=== PATIENT | male | born 1990 | race Caucasian/White ===

== ENCOUNTER 2020-05-30 13:00 | Outpatient (RCR) | payer OTHER, SELFPAY ==
--- NOTE | 2020-05-20 14:18 | HP.PTEVAL_ITS ---
Patient's Visit Information WOODROW LARIOS is a 29 year old M referred to Physical Therapy by ANGELICA Oneil with a diagnosis of STRAIN OF MUSCLE AND TENDON OF BACK WALL THORACIC. Date of Evaluation: 05/20/20 Physical Therapist: Jose Alberto Weber, PT, Cert MDT, OCS - Visit Plan Frequency: 2x /Week Duration: 5WEEKS Plan: PT INTERVENTIONS POSTURAL EX'S,THORACIC MOBLITY,STRENGTHENING THORACIC ,CORE EX'S,AND MODLITIES - Subjective This 29 y/o male presents to physical therapy with thoracic pain.Patient injuried back at work 05/06/20 carrying box caused thoracic pain . Seen DR next day at [facility] ,tried predisone. No diagnostics and place patient on light then return work . Patient pain located thoracic spine mid region. Denies parathesia/tingling. Couging /sneezing -. Bowel/bladder -. Patient pain affects ability to RTW fully duty and function. Pateint pain affects sleeping. Patient thoracic pain impairs QOL.Worse pain 8/10 with lifting. SOCAIL: single. VOCATION: [employer] - Objective POSTURE: mild foward posture,mild thoracic kyphosis. GAIT: reciprocal pattern. NEURO: INTACT denies parathesia/tingling. PALPATION: tender middle scapular region ,T6. AROM: BUE WFL. MMT: 4/5 except shoulders 4-/5,,BLE 5/5. THORACIC ROM: flexion mod loss,extension min loss pain,rotation to left pain min/mod loss,right mon loss. LUMBAR ROM: flexion mod loss pain thoracic,extension min loss thoracic - Special Tests Thoracic Sitting: Flexion - Mechanical Response: No effect Thoracic Sitting: Flexion - Symptoms During Testing: Increases Thoracic Sitting: Flexion - Symptoms After Testing: Worse Thoracic Sitting: Extension - Mechanical Response: No effect Thoracic Sitting: Extension - Symptoms During Testing: Increases Thoracic Sitting: Extension - Symptoms After Testing: No worse Thoracic Sitting: Right rotation - Mechanical Response: No effect Thoracic Sitting: Right Rotation - Symptoms During Testing: No effect Thoracic Sitting: Right Rotation - Symptoms After Testing: No effect Thoracic Sitting: Left rotation - Mechanical Response: No effect Thoracic Sitting: Left Rotation - Symptoms During Testing: Increases Thoracic Sitting: Left Rotation - Symptoms After Testing: Worse L/S Slump test left side: Positive L/S Slump test right side: Positive L/S Left Straight Leg Raise: Negative L/S Right Straight Leg Raise: Negative - Goals Goal 1:: Independant with HEP Goal Time Frame: 4-6 Weeks Goal 2:: Improve posture/body mechanics for job demnads Goal Time Frame: 4-6 Weeks Goal 3:: Improve thoracic ROM for function of recovery Goal Time Frame: 4-6 Weeks Goal 4:: Patient to decrease thoracic pain by 50% or > to RTW. Goal Time Frame: 4-6 Weeks Goal 5:: Pateint improbe back owestry score by 5 points or> to improve QOL and RTW. Goal Time Frame: 4-6 Weeks - Rehabilitation Potential Physical Therapy Diagnosis: This patient strained thoracic spine carrying boxes at work causing pain with motion test ,postion and affects ability to RTW full duty thus benifit from skilled PT Rehabilitation Potential: Good - Anticipated Interventions Patient/Client Instruction: Educate patient on: Condition, Plan of Care For the Purpose of:: To decrease pain, To increase ROM, To improve muscle perfo rmance and motor function, To improve ability to perform ADL's, To increase tolerance to activity/condition/position, To improve performance and independence with ADL's, To improve ability of physical actions for home/community/work/leisure, To improve health of tissue, To decrease soft tissue restriction, To increase flexibility/ROM, To improve ability to perform tasks related to life management Therapeutic Exercise to Include: Strength training, Postural training, Flexibilty training, Dynamic Lumbar Stabilization For the Purpose of:: To decrease pain, To increase ROM, To improve muscle performance and motor function, To improve ability to perform ADL's, To increase tolerance to activity/condition/position, To improve performance and indep endence with ADL's, To improve ability of physical actions for home/community/work/leisure, To increase flexibility/ROM, To improve endurance, To reduce risk of recurrence, To improve ability to perform tasks related to life management TENS: Yes IF ES: Yes Cryotherapy (ice pack, ice massage): Yes Thermo therapy (hot pack): Yes Ultrasound (thermal/non thermal): Yes For the Purpose of:: To decrease pain, To increase ROM, To improve muscle performance and motor function, To improve ability to perform ADL's, To increase tolerance to activity/condition/position, To improve ability of physical actions for home/community/work/leisure, To improve health of tissue, To decrease soft tissue restriction, To increase flexibility/ROM, To improve ability to perform tasks related to life management Thank you for the opportunity to evaluate your patient. For Medicare and Medicare HMO plans, please review the plan of care and approve it. It will need to be FAXED BACK to us at [phone] for Medicare purposes. For Medicare only, by signing this I certify the plan of care. Please let me know if there are questions or concerns regarding this plan of care. Physician Signature: Date:
--- NOTE | 2020-07-16 14:28 | HP.PTDCNRP_ITS ---
WOODROW LARIOS was seen in my office for initial evaluation on 05/20/20. The following Plan of Care was established for this patient: Initial Frequency: 2x /Week Initial Duration: 5WEEKS Patient/Client Instruction: Educate patient on: Condition, Plan of Care For the Purpose of:: To decrease pain, To increase ROM, To improve muscle performance and motor function, To improve ability to perform ADL's, To increase tolerance to activity/condition/position, To improve performance and i ndependence with ADL's, To improve ability of physical actions for home/community/work/leisure, To improve health of tissue, To decrease soft tissue restriction, To increase flexibility/ROM, To improve ability to perform tasks related to life management Therapeutic Exercise to Include: Strength training, Postural training, Flexibilty training, Dynamic Lumbar Stabilization For the Purpose of:: To decrease pain, To increase ROM, To improve muscle performance and motor function, To improve ability to perform ADL's, To increase tolerance to activity/condition/position, To improve performance and independence with ADL's, To improve ability of physical actions for home/community/work/leisure, To increase flexibility/ROM, To improve endurance, To reduce risk of recurrence, To improve ability to perform tasks related to life management TENS: Yes IF ES: Yes Cryotherapy (ice pack, ice massage): Yes Thermo therapy (hot pack): Yes Ultrasound (thermal/non thermal): Yes For the Purpose of:: To decrease pain, To increase ROM, To improve muscle performance and motor function, To improve ability to perform ADL's, To increase tolerance to activity/condition/position, To improve ability of physical actions for home/community/work/leisure, To improve health of tissue, To decrease soft tissue restriction, To increase flexibility/ROM, To improve ability to perform tasks related to life management This patient was last seen in our office . Pertinent comments regarding their Physical therapy will appear below: Patient seen for PT for thoracic wall pain ,PT intervetions focusing on postural strengthening and DLS ,patient had MRI thoracic and lumbar. At this point I will be discontinuing this patient from physical therapy. I would be happy to see this patient again in the future if found appropriate by the physician. Thank you! Jose Alberto Weber, PT, Cert MDT, OCS
== END 2020-05-30 19:00 | disposition home or self-care (01) ==
LOC: PT 13:00
PROVIDERS: PCP Family Medicine; Referring Provider Physician Assistant; Visit Provider Physician Assistant
DX: S29.012D Strain of muscle and tendon of back wall of thorax, subsequent encounter (principal)
CPT/HCPCS: 97014; 97110; 97162; G0283

== ENCOUNTER → 2020-06-18 16:54 | Outpatient (CLI) | payer OTHER, SELFPAY ==
--- NOTE | 2020-06-18 16:55 | MRI_ITS ---
STUDY: MRI THORACIC SPINE WITHOUT CONTRAST REASON FOR EXAM: Male, 30 years old. RLE radicular pain -- NKI, pain between scapulas, low back and rt leg x 1 month TECHNIQUE: Standardized fat and water weighted pulse sequences were obtained in the sagittal and axial planes. COMPARISON: None. FINDINGS: Normal kyphosis of the thoracic spine. There is no substantial scoliosis. No evidence for acute fracture or other significant bony pathology. Disc space heights are well-maintained however there is multilevel disc degeneration.. There is minor bulging of the disc at T9-10 with small right paracentral disc protrusion narrowing the spinal canal impinging upon the cord. There is a small right paracentral disc protrusion at T8-9 also narrowing the spinal canal and mildly impinging upon the cord. There is a small right posterolateral disc protrusion at T7-8 with only mild narrowing of the central canal Normal visualized thoracic cord. Normal conus medullaris that terminates at T12-L1. The soft tissue structures are unremarkable. MRI/Spine Thoracic (Routine) IMPRESSION: No evidence for acute fracture or other significant bony pathology Degenerative disc disease and mild multilevel spinal stenosis at T7-8, T8-9 and T9-10 due to small disc protrusions mildly narrowing the spinal canal and impinging upon the cord at T8-9 and T9-10 Electronically Signed: Josr Chaney MD at 20:18 EST , Service support ,
--- NOTE | 2020-06-18 16:55 | MRI_ITS ---
STUDY: MRI LUMBAR SPINE WITHOUT CONTRAST REASON FOR EXAM: Male, 30 years old. RLE radicular pain -- NKI, pain between scapulas, low back and rt leg x 1 month TECHNIQUE: Standardized fat and water weighted pulse sequences were obtained in the sagittal and axial planes. COMPARISON: None FINDINGS: T12-L1: Normal endplates. Normal disc height, hydration and morphology. Normal bilateral facet joints. Normal central canal and bilateral lateral recesses. Normal bilateral intervertebral neural foramina. Normal lumbar lordosis. There is no substantial scoliosis. Normal conus medullaris that terminates at T12-L1 L1-2: Normal endplates. Normal disc height, hydration and morphology. Normal bilateral facet joints. Normal central canal and bilateral lateral recesses. Normal bilateral intervertebral neural foramina. L2-3: Normal endplates. Normal disc height, hydration and morphology. Normal bilateral facet joints. Normal central canal and bilateral lateral recesses. Normal bilateral intervertebral neural foramina. L3-4: Normal endplates. Normal disc height, hydration and minimal annular bulge.. Normal bilateral facet joints. Normal central canal and bilateral lateral recesses. Normal bilateral neuroforamina.. L4-5: Normal endplates. Normal disc height, hydration and minimal annular bulge. Normal bilateral facet joints. Normal central canal and bilateral lateral recesses. Normal bilateral neuroforamina L5-S1: Normal endplates. Normal disc height, hydration and morphology. Normal bilateral facet joints. Normal central canal and bilateral lateral recesses. Normal bilateral intervertebral neural foramina. Normal visualized sacral ala. Normal visualized paraspinous soft tissue structures. MRI/Spine Lumbar (Routine) IMPRESSION: No evidence for acute fracture or other significant bony pathology. . Minimal annular bulging at L3-4 and L4-5. No focal disc protrusion or spinal stenosis Electronically Signed: Josr Chaney MD at 19:48 EST , Service support ,
== END ==
PROVIDERS: PCP Family Medicine; Referring Provider Physician Assistant; Visit Provider Physician Assistant
DX: S29.012A Strain of muscle and tendon of back wall of thorax, initial encounter (principal); S39.012A Strain of muscle, fascia and tendon of lower back, initial encounter; M51.24 Other intervertebral disc displacement, thoracic region; M51.34 Other intervertebral disc degeneration, thoracic region; M48.04 Spinal stenosis, thoracic region
CPT/HCPCS: 72146; 72148

== ENCOUNTER 2021-01-09 15:30 | Outpatient (RCR) | payer OTHER, SELFPAY ==
[2020-06-19 15:06] VITALS: BMI 48.7
--- NOTE | 2020-10-03 11:08 | HP.PTEVAL_ITS ---
Patient's Visit Information WOODROW LARIOS is a 30 year old M referred to Physical Therapy by Dr. Bereket Pantoja MD with a diagnosis of BACK PAIN. Date of Evaluation: 10/03/20 Physical Therapist: Randi Biswas PT, Cert MDT - Visit Plan Frequency: 2-3x /Week Duration: 4-6 Weeks Plan: *NO LIFTING > 5 LBS*. NO OVER HEAD PRESS, TWISTING OR SUPINE LEG PRESS INCLUDING SHUTTLE. POSTURE CORRECTION/STRENGTHENING, INSTRUCTION IN APPROPRIATE BODY MECHANICS AND ACTIVITY MODIFICATIONS. DLS WITH A NEUTRAL SPINE TOLERATED. MARYCARMEN LE ROM, STRETCHING AND STRENGTHENING. HEP INSTRUCTION. 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 CURRENTLY OFF WORK FOR BACK SINCE AUG 07 2020. TENTATIVE RETURN TO WORK DATE APPROX OCTOBER 24 2020 TO 11/05/20. Disability: SHORT TERM ONLY. Present symptoms: MID BACK PAIN. NO LOW BACK PAIN. RIGHT THIGH, LEG, AND FOOT NUMBNESS. PATIENT DENIES LLE SX'S. INTERMITTENT PAIN AND NUMBNESS R LE. CALF M. WAS CRAMPING BEFORE THE INJECTION. PATIENT DENIES MARYCARMEN UE SX'S. Present since: MAY 06 2020. Pain Scale: WORST 2/10, LEAST 0/10. THERE ARE NOW TIMES THAT PATIENT REPORTS HE IS COMPLETELY SX FREE. Currently: 0/10. Commenced as a result of: PUSHING AT WORK IS WHEN PAIN STARTED AND THEN IT GOT WORSE WHEN BENDING AND LIFTING AT WORK. Symptoms at onset: MID BACK PAIN. Worse: WALKING, STANDING IN ONE SPOT TOO LONG, AND PROBABLY CARRYING THINGS. Better: SITTING, LYING DOWN. Disturbed sleep: NO. Previous history/Previous treatment: UNREMARKABLE. NO CHIROPRACTOR. Treatment this episode: IBUPROFEN, PREDNISONE, PT - MADE IT MUCH WORSE - EARLY JUN 2020, SYLWIA LAST TUESDAY - PATIENT REPORTS DECREASED PAIN AND INCREASED MOBILITY SINCE THE INJECTION. CONSULT WITH DR. TRAORE APPROX JUL 09 2020 - DR. TRAORE REFERRED PATIENT TO PAIN MGMT. PATIENT REPORTS DR. TRAORE TOLD HIM HE DOES NOT THINK SURGERY WOULD BE AN OPTION. Coughing/sneezing/straining: NEGATIVE. Gait: TIME AND DISTANCE LIMITED. CAN WALK ABOUT A MILE. Difficulty initiating urinatin: NO. Accidents: NO. Unexplained weight loss: NO. Imaging: BACK X-RAYS AND MRI BEFORE INJECTION. THORACIC MRI: 06/18/20 FINDINGS: Normal kyphosis of the thoracic spine. There is no substantial scoliosis. No evidence for acute fracture or other significant bony pathology. Disc space heights are well- maintained however there is multilevel disc. degeneration.. There is minor bulging of the disc at T9-10 with small right paracentral. disc protrusion narrowing the spinal canal impinging upon the cord. There is a small right paracentral disc protrusion at T8-9 also narrowing. the spinal canal and mildly impinging upon the cord. There is a small right posterolateral disc protrusion at T7-8 with only. mild narrowing of the central canal. Normal visualized thoracic cord. Normal conus medullaris that terminates at. T12-L1. The soft tissue structures are unremarkable. LUMBAR MRI: 06/18/20. MPRESSION: No evidence for acute fracture or other significant bony pathology. . Minimal annular bulging at L3-4 and L4-5. No focal disc protrusion or spinal stenosis. . PMH/Recent major surgery: UNREMARKABLE. - Objective Sitting/Standing Posture: POOR. INCREASED KYPHOSIS. Lordosis: NORMAL. Lateral shift: NO. Relevant shift: N/A. Active Correction of posture: NE. Other Observations: INDEP GAIT AND TRANSFERS WITH NO GROSS DEVIATIONS NOTED. BUT PATIENT REPORTED ON-SET OF R THIGH NUMBNESS RISING FROM SITTING AND THE NUMBNESS REMAINED FOR SEVERAL MINUTES AND CAME AND WENT DURING EVAL. Motor deficit: Sensory deficit: MARYCARMEN LE LIGHT TOUCH SENSATION INTACT AND SYMMETRICAL. ROM deficit: TIGHT MARYCARMEN HIP FLEXORS, HIP EXTENSORS, HIP IR'S, HS'S AND GASTROC SOLEUS COMPLEX'S . Reflexes: UNALBE TO ELICIT RIGHT LE DTR'S BUT L LE 2/3. Dural Signs: NEGATIVE MARYCARMEN LE'S. THORACIC MVMT LOSS: MINIMAL MVMT LOSS MARYCARMEN AND NO PAIN WITH TESTING TO THE LEFT AND BRIEF VERY MILD PAIN UPON RETURN FROM THE RIGHT. Lumbar mvmt loss: flex - MIN TO MOD. ext - MOD TO SOLO -. R SG - MIN - PINCH FOR A SPLIT SECOND IN MID BACK. L SG - MIN - PINCH FOR A SPLIT SECOND IN MID BACK. Core strength: POOR. Palpation: NO ACUTE THORACIC OR L UMBAR TENDERNESS. TREATMENT: NEUROMUSCULAR REEDUCATION - RETRAINING OF MVMT AND POSTURE FOR SITTING, LYING AND STANDING ACTIVITIES. - Goals Goal 1:: DECREASE C/O MID BACK PAIN AND R LE SX'S. Goal Time Frame: 4-6 Weeks Goal 2:: IMPROVE LIFTING, WALKING, STANDING, SOCIAL LIFE, WORK, AND HOMEMAKING FUNCTION. Goal Time Frame: 4-6 Weeks Goal 3:: INSTRUCT IN PROPHYLAXIS Goal Time Frame: 4-6 Weeks - Anticipated Interventions Patient/Client Instruction: Educate patient on: Condition, Plan of Care, Risk Factors, Benefits of Fitness Program For the Purpose of:: To improve self management Therapeutic Exercise to Include: Strength training, Body mechanics, Postural training, Neuromotor development, In an aquatic setting, Dynamic Lumbar Stabilization For the Purpose of:: To decrease pain, To improve muscle performance and motor function, To increase tolerance to activity/condition/position, To improve ability of physical actions for home/community/work/leisure Thank you for the opportunity to evaluate your patient. For Medicare and Medicare HMO plans, please review the plan of care and approve it. It will need to be FAXED BACK to us at [phone] for Medicare purposes. For Medicare only, by signing this I certify the plan of care. Please let me know if there are questions or concerns regarding this plan of care. Physician Signature: Date:
--- NOTE | 2020-11-06 09:29 | HP.PTEVAL_ITS ---
Patient's Visit Information WOODROW LARIOS is a 30 year old M referred to Physical Therapy by Dr. Bereket Pantoja MD with a diagnosis of BACK PAIN. Date of Evaluation: 10/03/20 Physical Therapist: Randi Biswas, PT, Cert MDT - Visit Plan Frequency: 2-3x /Week Duration: 4-6 Weeks Plan: *Progress all to faster speeds, less stabilization and greater WBing. NO OVER HEAD PRESS, TWISTING OR SUPINE LEG PRESS INCLUDING SHUTTLE. POSTURE CORRECTION/STRENGTHENING, INSTRUCTION IN APPROPRIATE BODY MECHANICS AND ACTIVITY MODIFICATIONS. DLS WITH A NEUTRAL SPINE TOLERATED. MARYCARMEN LE ROM, STRETCHING AND STRENGTHENING. HEP INSTRUCTION. 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 CURRENTLY OFF WORK FOR BACK SINCE AUG 07 2020. TENTATIVE RETURN TO WORK DATE APPROX OCTOBER 24 2020 TO 11/05/20. Disability: SHORT TERM ONLY. Present symptoms: MID BACK PAIN. NO LOW BACK PAIN. RIGHT THIGH, LEG, AND FOOT NUMBNESS. PATIENT DENIES LLE SX'S. INTERMITTENT PAIN AND NUMBNESS R LE. CALF M. WAS CRAMPING BEFORE THE INJECTION. PATIENT DENIES MARYCARMEN UE SX'S. Present since: MAY 06 2020. Pain Scale: WORST 2/10, LEAST 0/10. THERE ARE NOW TIMES THAT PATIENT REPORTS HE IS COMPLETELY SX FREE. Currently: 0/10. Commenced as a result of: PUSHING AT WORK IS WHEN PAIN STARTED AND THEN IT GOT WORSE WHEN BENDING AND LIFTING AT WORK. Symptoms at onset: MID BACK PAIN. Worse: WALKING, STANDING IN ONE SPOT TOO LONG, AND PROBABLY CARRYING THINGS. Better: SITTING, LYING DOWN. Disturbed sleep: NO. Previous history/Previous treatment: UNREMARKABLE. NO CHIROPRACTOR. Treatment this episode: IBUPROFEN, PREDNISONE, PT - MADE IT MUCH WORSE - EARLY JUN 2020, SYLWIA LAST TUESDAY - PATIENT REPORTS DECREASED PAIN AND INCREASED MOBILITY SINCE THE INJECTION. CONSULT WITH DR. TRAORE APPROX JUL 09 2020 - DR. TRAORE REFERRED PATIENT TO PAIN MGMT. PATIENT REPORTS DR. TRAORE TOLD HIM HE DOES NOT THINK SURGERY WOULD BE AN OPTION. Coughing/sneezing/straining: NEGATIVE. Gait: TIME AND DISTANCE LI MITED. CAN WALK ABOUT A MILE. Difficulty initiating urinatin: NO. Accidents: NO. Unexplained weight loss: NO. Imaging: BACK X-RAYS AND MRI BEFORE INJECTION. THORACIC MRI: 06/18/20 FINDINGS: Normal kyphosis of the thoracic spine. There is no substantial scoliosis. No evidence for acute fracture or other significant bony pathology. Disc space heights are well-maintained however there is multilevel disc. degeneration.. There is minor bulging of the disc at T9-10 with small right paracentral. disc protrusion narrowing the spinal canal impinging upon the cord. There is a small right paracentral disc protrusion at T8-9 also narrowing. the spinal canal and mildly impinging upon the cord. There is a small right posterolateral disc protrusion at T7-8 with only. mild narrowing of the central canal. Normal visualized thoracic cord. Normal conus medullaris that terminates at. T12-L1. The soft tissue structures are unremarkable. LUMBAR MRI: 06/18/20. MPRESSION: No evidence for acute fracture or other significant bony pathology. . Minimal annular bulging at L3- 4 and L4-5. No focal disc protrusion or spinal stenosis. . PMH/Recent major surgery: UNREMARKABLE. - Pain Thoracic Spine Pain Intensity (Out of 10): 0 Comment: lower - Objective Sitting/Standing Posture: POOR. INCREASED KYPHOSIS. Lordosis: NORMAL. Lateral shift: NO. Relevant shift: N/A. Active Correction of posture: NE. Other Observations: INDEP GAIT AND TRANSFERS WITH NO GROSS DEVIATIONS NOTED. BUT PATIENT REPORTED ON-SET OF R THIGH NUMBNESS RISING FROM SITTING AND THE NUMBNESS REMAINED FOR SEVERAL MINUTES AND CAME AND WENT DURING EVAL. Motor deficit: Sensory deficit: MARYCARMEN LE LIGHT TOUCH SENSATION INTACT AND SYMMETRICAL. ROM deficit: TIGHT MARYCARMEN HIP FLEXORS, HIP EXTENSORS, HIP IR'S, HS'S AND GASTROC SOLEUS COMPLEX'S . Reflexes: UNALBE TO ELICIT RIGHT LE DTR'S BUT L LE 2/3. Dural Signs: NEGATIVE MARYCARMEN LE'S. THORACIC MVMT LOSS: MINIMAL MVMT LOSS MARYCARMEN AND NO PAIN WITH TESTING TO THE LEFT AND BRIEF VERY MILD PAIN UPON RETURN FROM THE RIGHT. Lumbar mvmt loss: flex - MIN TO MOD. ext - MOD TO SOLO -. R SG - MIN - PINCH FOR A SPLIT SECOND IN MID BACK. L SG - MIN - PINCH FOR A SPLIT SECOND IN MID BACK. Core strength: POOR. Palpation: NO ACUTE THORACIC OR LUMBAR TENDERNESS. TREATMENT: NEUROMUSCULAR REEDUCATION - RETRAINING OF MVMT AND POSTURE FOR SITTING, LYING AND STANDING ACTIVITIES. - Goals Goal 1:: DECREASE C/O MID BACK PAIN AND R LE SX'S. Goal Time Frame: 4-6 Weeks Goal 2:: IMPROVE LIFTING, WALKING, STANDING, SOCIAL LIFE, WORK, AND HOMEMAKING FUNCTION. Goal Time Frame: 4-6 Weeks Goal 3:: INSTRUCT IN PROPHYLAXIS Goal Time Frame: 4-6 Weeks - Anticipated Interventions Patient/Client Instruction: Educate patient on: Condition, Plan of Care, Risk Factors, Benefits of Fitness Program For the Purpose of:: To improve self management Therapeutic Exercise to Include: Strength training, Body mechanics, Postural training, Neuromotor development, In an aquatic setting, Dynamic Lumbar Stabilization For the Purpose of:: To decrease pain, To improve muscle performance and motor function, To increase tolerance to activity/condition/position, To improve ability of physical actions for home/community/work/leisure Thank you for the opportunity to evaluate your patient. For Medicare and Medicare HMO plans, please review the plan of care and approve it. It will need to be FAXED BACK to us at [phone] for Medicare purposes. For Medicare only, by signing this I certify the plan of care. Please let me know if there are questions or concerns regarding this plan of care. Physician Signature: Date:
--- NOTE | 2020-11-06 09:29 | HP.PTREVAL ---
Dr. Bereket Pantoja MD, It has been my pleasure to treat WOODROW LARIOS over the last 13 visits for BACK PAIN. Please see the progress note below for an update on the physical therapy plan of care! Subjective: PATIENT REPORTS HE DOESN'T FEEL STIFF AT ALL NOW. STATES HIS R LEG STILL GOES NUMB AND HIS BACK HURTS IF HE WALKS ABOUT A MILE. THE NUMBNESS IS NO LONGER GOING ALL THE WAY DOWN TO THE FOOT THOUGH. 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 PATIENT REPORTS HE WOULD LIKE TO CONTINUE PT BASED ON PROGRESS MADE. Objective/Function: PATIENT WAS SEEN TODAY FOR RE-ASSESSMENT OF PROGRESS TOWARD THE SET PT GOALS AND THE NEED FOR FURTHER PHYSICAL THERAPY VS READINESS FOR DISCHARGE. UPON EXAM TODAY: THORACIC MVMT LOSS: MINIMAL MVMT LOSS MARYCARMEN AND NO PAIN WITH TESTING TO THE LEFT AND BRIEF VERY MILD PAIN UPON RETURN FROM THE RIGHT. Lumbar mvmt loss: flex - MIN. ext - MOD. R SG - NIL. L SG - NIL. Core strength: POOR. Palpation: NO ACUTE THORACIC OR LUMBAR TENDERNESS. Plan Plan: *Progress all to faster speeds, less stabilization and greater WBing. NO OVER HEAD PRESS, TWISTING OR SUPINE LEG PRESS INCLUDING SHUTTLE. POSTURE CORRECTION/STRENGTHENING, INSTRUCTION IN APPROPRIATE BODY MECHANICS AND ACTIVITY MODIFICATIONS. DLS WITH A NEUTRAL SPINE TOLERATED. MARYCARMEN LE ROM, STRETCHING AND STRENGTHENING. HEP INSTRUCTION. Goals Goal 1:: DECREASE C/O MID BACK PAIN AND R LE SX'S. Goal Time Frame: 4-6 Weeks Goal Progress: Progressing Goal 2:: IMPROVE LIFTING, WALKING, STANDING, SOCIAL LIFE, WORK, AND HOMEMAKING FUNCTION. Goal Time Frame: 4-6 Weeks Goal Progress: Progressing Goal 3:: INSTRUCT IN PROPHYLAXIS Goal Time Frame: 4-6 Weeks Goal Progress: Progressing Anticipated Interventions Patient/Client Instruction: Educate patient on: Condition, Plan of Care, Risk Factors, Benefits of Fitness Program For the Purpose of:: To improve self management Therapeutic Exercise to Include: Strength training, Body mechanics, Postural training, Neuromotor development, In an aquatic setting, Dynamic Lumbar Stabilization For the Purpose of:: To decrease pain, To improve muscle performance and motor function, To increase tolerance to activity/condition/position, To improve ability of physical actions for home/community/work/leisure Please do not hesitate to contact me at [phone] by phone or if you have questions or concerns regarding this new plan of care! Sincerely, Randi Biswas, PT, Cert MDT
--- NOTE | 2020-12-11 14:07 | HP.PTREVAL ---
Dr. Bereket Pantoja MD, It has been my pleasure to treat WOODROW LARIOS over the last 27 visits for BACK PAIN. Please see the progress note below for an update on the physical therapy plan of care! Subjective: PATIENT REPORTS HE IS GETTING A LOT BETTER. HAVING LESS PAIN WITH NORMAL ADL'S. PATIENT REPORTS HE IS ABLE TO DO MORE CLEANING NOW WITH LESS PAIN, LESS REST AND QUICKER RECOVERY TIME. CAN SHOP FOR ABOUT 30 MINUTES CONTINUOUS NOW TOO. STATES HE CAN WALK FURTHER WITH LESS R LE NUMBNESS NOW TOO. TWO THERAPY SESSIONS BACK TO BACK IS DIFFICULT. PATIENT REPORTS HE STILL WANTS TO RETURN TO HIS JOB AT [employer] AND HE FEELS MUCH MORE OPTOMISTIC AND CLOSER TO MAKING THAT A REALITY NOW. TOLERATED OVER-HEAD LIFTING LAST SESSION WELL BUT KNOWS HE HAS MORE WORK NEEDED IN THAT AREA TO GET THROUGH A FULL DAY OF WORK. FOLLOW UP WITH DR. ESTEVES AND DR. PANTOJA PENDING NEXT WEEK. Objective/Function: PATIENT WAS SEEN TODAY FOR RE-ASSESSMENT OF PROGRESS TOWARD THE SET PT GOALS AND THE NEED FOR FURTHER PHYSICAL THERAPY VS READINESS FOR DISCHARGE. PATIENT IS A GOOD CANDIDATE TO CONTINUE PT WITH BELOW TRANSITION TO LAND/GYM EX BASED ON IMPROVEMENT MADE AND ROOM FOR FURHTER IMPROVEMENT. UPON EXAM TODAY: THORACIC MVMT LOSS: NIL. Lumbar mvmt loss: flex - MIN. ext - MOD. R SG - NIL. L SG - NIL. PATIENT DENIES PAIN WITH LUMBAR AND THORACIC ROM TESTING TODAY. Core strength: FAIR Palpation: NO ACUTE THORACIC OR LUMBAR TENDERNESS. Plan Plan: NO LITING > 5 LBS UNTIL OK'D BY DR. ESTEVES. *RTW: WAS 12/13/20 AND WILL CHANGE PENDING FOLLOW UP WITH DR. ESTEVES NEXT WEEK. NO OVER HEAD PRESS, TWISTING OR SUPINE LEG PRESS INCLUDING SHUTTLE. DECREASE POOL TO 1X/WK AND BEGIN LAND EX 2X'S A WEEK WITH GOAL OF SUCCESSFUL TRANSITION TO INDEP GYM PROGRAM HERE AT [facility]. POSTURE CORRECTION/STRENGTHENING, INSTRUCTION IN APPROPRIATE BODY MECHANICS AND ACTIVITY MODIFICATIONS. DLS WITH A NEUTRAL SPINE TOLERATED. MARYCARMEN LE ROM, STRETCHING AND STRENGTHENING. HEP INSTRUCTION. Goals Goal 1:: DECREASE C/O MID BACK PAIN AND R LE SX'S. Goal Time Frame: 4-6 Weeks Goal Progress: Progressing Goal 2:: IMPROVE LIFTING, WALKING, STANDING, SOCIAL LIFE, WORK, AND HOMEMAKING FUNCTION. Goal Time Frame: 4-6 Weeks Goal Progress: Progressing Goal 3:: INSTRUCT IN PROPHYLAXIS Goal Time Frame: 4-6 Weeks Goal Progress: Progressing Anticipated Interventions Patient/Client Instruction: Educate patient on: Condition, Plan of Care, Risk Factors, Benefits of Fitness Program For the Purpose of:: To improve self management Therapeutic Exercise to Include: Strength training, Body mechanics, Postural training, Neuromotor development, In an aquatic setting, Dynamic Lumbar Stabilization For the Purpose of:: To decrease pain, To improve muscle performance and motor function, To increase tolerance to activity/condition/position, To improve ability of physical actions for home/community/work/leisure Please do not hesitate to contact me at [phone] by phone or if you have questions or concerns regarding this new plan of care! Sincerely, Randi Biswas, PT, Cert MDT
--- NOTE | 2021-01-09 16:03 | HP.PTDCSUM ---
It has been my pleasure to treat WOODROW LARIOS referred by Dr. Bereket Pantoja MD, with the diagnosis of BACK PAIN for a total of 36 visit(s). Discharge Date: 01/09/21 Please see the following information for a summary of their discharge status. Subjective: I AM FEELING VERY GOOD. PATIENT REPORTS FEELING 90% BETTER AND STATES HE WON'T KNOW IF HE IS 100% UNTIL RETURN TO FULL ACTIVITY. PAIN IS ALMOST GONE. STATES HE IS DOING A LOT MORE WITH LESS CONSEQUENCE. PATIENT REPROTS HE IS GRATEFUL FOR WHAT WE HAVE DONE FOR HIM. GOING BACK TO WORK NEXT TUESDAY. PATIENT REPORTS HE FEELS GOOD ABOUT GOING BACK TO WORK. Thoracic Spine Pain Intensity (Out of 10): 0 % Improvement: 90 Objective/Function: PATIENT WAS SEEN TODAY FOR RE-ASSESSMENT OF PROGRESS TOWARD THE SET PT GOALS AND THE NEED FOR FURTHER PHYSICAL THERAPY VS READINESS FOR DISCHARGE. ALL GOALS HAVE BEEN MET AND PATINET IS APPROPRIATE FOR DISCHARGE. PATIENT IS AGREEABLE. UPON EXAM TODAY: THORACIC MVMT LOSS: NIL. Lumbar mvmt loss: flex - VERY MINIMAL ext - MIN R SG - NIL. L SG - NIL. PATIENT DENIES PAIN WITH LUMBAR AND THORACIC ROM TESTING TODAY. Core strength: GOOD Palpation: NO ACUTE THORACIC OR LUMBAR TENDERNESS. [ End ] Goal 1:: DECREASE C/O MID BACK PAIN AND R LE SX'S. Goal Progress: Goal Met Goal 2:: IMPROVE LIFTING, WALKING, STANDING, SOCIAL LIFE, WORK, AND HOMEMAKING FUNCTION. Goal Progress: Goal Met Goal 3:: INSTRUCT IN PROPHYLAXIS Goal Progress: Goal Met Plan: D/C TO INDEP EX. PATIENT AGREEABLE. If there are questions or concerns regarding this patient's physical therapy, please feel free to call me at [phone]. Thank you for the referral of this patient. Sincerely, Randi Biswas, PT, Cert MDT
== END 2021-01-09 19:00 | disposition home or self-care (01) ==
LOC: PT 15:30
PROVIDERS: PCP Family Medicine; Referring Provider Anesthesiology; Visit Provider Anesthesiology
DX: M54.9 Dorsalgia, unspecified (principal)
CPT/HCPCS: 97110; 97112; 97113; 97162; 97164